=== PATIENT | female | born 2000 ===

== ENCOUNTER 2021-07-04 21:46 | Inpatient (IN) | payer OTHER ==
[~2021-07-04 21:46] MED LIST: Bupivacaine 0.25% HCL 30 ML VIAL ONE
[2021-07-04 22:21] VITALS: BMI 32.0
[2021-07-04] MEDS ORDERED: hydrALAZINE 20 MG/ML VIAL SLOW IVP PRN ×2 (22:43→23:57)
[2021-07-04 23:27] LABS: #Eosinphils 0.1 10x3/uL (0.0-0.5); #Monocytes 0.7 10x3/uL (0.0-1.1); #Neutrophils 9.5 10x3/uL (1.5-8.4); %Basophils 0.3 % (0.0-2.0); %Eosinophils 0.5 % (0.0-6.0); %Lymphocytes 18.4 % (18.0-47.0); %Monocytes 5.5 % (0.0-10.0); %Neutrophils 74.8 % (40.0-75.0); Mean Corpuscular HGB CONC 32.8 g/dL (32.0-36.0); Mean Corpuscular Hemoglobin 28.2 pg (27.0-33.0); Mean Corpuscular Volume 85.9 fl (81.6-98.3); Platelet Count 253 10x3/uL (150-450); RBC Distribution Width 12.9 % (11.5-14.5); Red Blood Cell (RBC) Count 3.55 10x6/uL (3.90-5.03); White Blood Cell (WBC) Count 12.7 10x3/uL (3.5-10.5)
[2021-07-04 23:41] LABS: Creatinine, Urine 73.15 mg/dL (47-110)
[2021-07-04 23:42] LABS: ALT (SGPT) 10 U/L (8-55); AST (SGOT) 13 U/L (5-34); Albumin 3.1 g/dL (3.5-5.0); Alkaline Phosphatase 104 U/L (40-110); Anion Gap 13 mmol/L (10-20); BUN (Urea Nitrogen) 11 mg/dL (7.0-18.7); Bilirubin, Total 0.2 mg/dL (0.2-1.2); Calc. Creatinine Clearance 214 mL/min (70-130); Calcium 8.8 mg/dL (7.8-10.44); Carbon Dioxide 20 mmol/L (22-29); Chloride 105 mmol/L (98-107); Globulin 3.1 g/dL (2.4-3.5); Glucose 100 mg/dL (70-105); Protein, Total 6.2 g/dL (6.0-8.3); Sodium 134 mmol/L (136-145)
[2021-07-04] MEDS ORDERED: Butorphanol Tartrate 1 MG/ML VIAL SLOW IVP PRN (23:57)
[2021-07-04] MEDS ORDERED: Ibuprofen 800 MG TAB PO PRN (23:57)
[2021-07-04] MEDS ORDERED: Acetaminophen 500 MG TAB PO PRN (23:57)
[2021-07-04] MEDS ORDERED: Promethazine HCl 25 MG/ML VIAL IM PRN (23:57)
[2021-07-04] MEDS ORDERED: Ondansetron PF 4 MG/2 ML Vial IVP PRN (23:57)
[2021-07-04] MEDS ORDERED: Lidocaine 1% (PF) 30 ML VIAL SC PRN (23:57)
[2021-07-04] MEDS ORDERED: Misoprostol 200 MCG TAB PR PRN (23:57)
[2021-07-05] MEDS ORDERED: NS w/ Oxytocin 30 units 500 ML IV SCH ×2 (00:15→15:28)
[2021-07-05] MEDS ORDERED: NS w/ Oxytocin 30 units 500 ML IVPB SCH (00:15)
[2021-07-05 00:59] LABS: Hep B Surf Ag Non-Reactive S/CO (NonReactive); Syphilis Antibody Nonreactive (Nonreactive); Syphilis Antibody Index 0.06 S/CO (<1.00 Non-Reactive)
[2021-07-05] MEDS: Lactated Ringer's 1,000 ML IV SCH ×2 (09:00→13:27)
[2021-07-05] MEDS ORDERED: Fentanyl 2 mcg/Bup 0.1% Cadd 100 ML ONE ×2 (09:53→13:31)
[2021-07-05] MEDS ORDERED: ePHEDrine Sulfate 50 MG/10 ML VIAL SLOW IVP PRN (13:57)
[2021-07-05] MEDS ORDERED: Hydrocerin (Eucerin) Cream 120 gm Jar TOP PRN (13:57)
[2021-07-05] MEDS ORDERED: Lactated Ringer's 500 ML IV PRN (13:57)
[2021-07-05] MEDS ORDERED: Acetaminophen 325 MG TAB PO PRN (13:57)
[2021-07-05] MEDS ORDERED: Ondansetron PF 4 MG/2 ML Vial IVP PRN ×2 (13:57→15:28)
[2021-07-05] MEDS ORDERED: Naloxone HCl 0.4 mg/ml Vial IVP PRN ×2 (13:57)
[2021-07-05] MEDS ORDERED: diphenhydrAMINE 50 MG/ML VIAL IVP PRN (13:57)
[2021-07-05] MEDS ORDERED: Promethazine HCl 25 MG/ML VIAL IM PRN ×2 (13:57→15:28)
[2021-07-05] MEDS ORDERED: Fentanyl 2 mcg/Bupivacaine 0.1% Cassette 100 ML EPIDURAL SCH (14:00)
[2021-07-05] MEDS ORDERED: Communication Order-Pharmacy FS SCH (14:00)
[2021-07-05] MEDS ORDERED: Misoprostol 200 MCG TAB VAG PRN (15:28)
[2021-07-05] MEDS ORDERED: Milk Of Magnesia 30 ML UDCUP PO PRN (15:28)
[2021-07-05] MEDS ORDERED: Lanolin Ointment 7 GM TUBE TOP PRN (15:28)
[2021-07-05] MEDS ORDERED: Boostrix 0.5 ML (Tdap) VIAL IM ONE (15:28)
[2021-07-05] MEDS ORDERED: Benzocaine-Menthol 82.5 ML CAN TOP PRN (15:28)
[2021-07-05] MEDS ORDERED: hydrALAZINE 20 MG/ML VIAL SLOW IVP PRN (15:28)
[2021-07-05] MEDS ORDERED: Bisacodyl 10 MG SUPP PR PRN (15:28)
[2021-07-05] MEDS ORDERED: HYDROcodone/Acetaminophen 5/325 mg Tablet PO PRN ×2 (15:28)
[2021-07-05] MEDS: Ferrous Sulfate 325 MG TAB PO SCH (16:55)
[2021-07-05] MEDS: Ibuprofen 800 MG TAB PO SCH (21:11)
[2021-07-05] MEDS: Docusate Calcium (SURFAK) 240 MG CAP PO SCH (21:11)
[2021-07-06] MEDS: Ibuprofen 800 MG TAB PO SCH ×2 (05:30→14:19)
[2021-07-06] MEDS: Ferrous Sulfate 325 MG TAB PO SCH (08:38)
[2021-07-06] MEDS: Docusate Calcium (SURFAK) 240 MG CAP PO SCH (08:39)
[2021-07-06] MEDS ORDERED: Prenatal Vitamin 1 TAB PO SCH (09:00)
[2021-07-06 10:51] VITALS: BP 127/73; TEMP 98
== END 2021-07-06 16:00 | disposition home or self-care (01) | DRG 807 ==
LOC: CSHLD/OP 21:46 → CSHLD 23:57 → UNDOADMIN 07-05 00:30 → CSHLD 07-05 00:30 → CSHPP 07-05 16:15 → CSHLD 07-05 16:15
PROVIDERS: ADMIT Obstetrics & Gynecology; ATTEND Obstetrics & Gynecology
PROC: 10E0XZZ Delivery of Products of Conception, External Approach (ICD-10-PCS; principal; 2021-07-05)
PROC: 10907ZC Drainage of Amniotic Fluid, Therapeutic from Products of Conception, Via Natural or Artificial Opening (ICD-10-PCS; 2021-07-05)
PROC: 3E033VJ Introduction of Other Hormone into Peripheral Vein, Percutaneous Approach (ICD-10-PCS; 2021-07-05)
PROC: 0HQ9XZZ Repair Perineum Skin, External Approach (ICD-10-PCS; 2021-07-05)
DX: O14.94 Unspecified pre-eclampsia, complicating childbirth (principal); Z37.0 Single live birth; Z3A.39 39 weeks gestation of pregnancy; O99.344 Other mental disorders complicating childbirth; F41.9 Anxiety disorder, unspecified; F32.A Depression, unspecified; O71.4 Obstetric high vaginal laceration alone
CPT/HCPCS: 36415; 80053; 82570; 84156; 85025; 86780; 86850; 86900; 86901; 87340; 99285; J0360; J2405; J2590; J7120; S0020